=== PATIENT | female | born 1950 | race Caucasian/White ===

== ENCOUNTER 2022-04-02 03:52 | Emergency (ER) | payer OTHER, MEDICARE ==
[2022-04-02 04:05] VITALS: BP 114/76; PULSE 74; RESP 16; TEMP 98.1; BMI 14.6
== END 2022-04-02 07:16 | disposition home or self-care (01) ==
LOC: FER 03:52
DX: R68.89 Other general symptoms and signs (principal); W19.XXXA Unspecified fall, initial encounter
CPT/HCPCS: 99282-25

== ENCOUNTER 2022-04-11 02:34 | Emergency (ER) | payer OTHER, MEDICARE ==
[2022-04-11] MEDS ORDERED: FOLIC ACID INJECTION - 1 MG, THIAMINE HCL 100 MG, MULTIVIT INJECTION ADULT 10 ML in SOD... IVPB ONE (02:42)
[2022-04-11 03:26] VITALS: PULSE 66; TEMP 97.2; BMI 15.6
[2022-04-11] MEDS ORDERED: THIAMINE HCL 200 MG/2 ML VIAL ONE (03:30)
[2022-04-11] MEDS ORDERED: FOLIC ACID 5 MG/1 ML ONE (03:31)
[2022-04-11] MEDS ORDERED: MULTIVIT INJ. ADULT COMBO WITH VIT K 1 COMBO 10 ML VIAL IV ONE (03:33)
[2022-04-11 04:17] LABS: BASO % 0.5 % (0-2.0); EOS % 0.8 % (0-4.5); HEMATOCRIT 33.1 % (32.4-45.2); HEMOGLOBIN 11.4 GM/dL (10.7-15.3); LYMPH % 8.8 % (8-40); MCH 33.8 pg (25.7-33.7); MCHC 34.6 g/dl (32.0-36.0); MEAN CELL VOLUME 97.7 fl (80-96); MEAN PLT VOLUME 7.3 fl (7.5-11.1); MONO % 6.6 % (3.8-10.2); NEUT % 83.3 % (42.8-82.8); PH,URINE 6.5 (5.0-8.0); PLATELET COUNT 169 10^3/uL (134-434); RBC 3.38 M/mm3 (3.60-5.2); URINE APPEARANCE CLEAR; URINE BILIRUBIN NEGATIVE (NEGATIVE); URINE COLOR YELLOW; URINE GLUCOSE (UA) NEGATIVE (NEGATIVE); URINE KETONE NEGATIVE (NEGATIVE); URINE LEUK ESTERASE NEGATIVE (NEGATIVE); URINE NITRITE NEGATIVE (NEGATIVE); URINE PROTEIN NEGATIVE (NEGATIVE); URINE UROBILINOGEN 0.2 mg/dL (0.2-1.0); WHITE BLOOD COUNT 5.2 K/mm3 (4.0-10.0)
[2022-04-11 04:23] LABS: INR 1.11 (0.83-1.09); PROTHROMBIN TIME (PATIENT) 12.8 SEC (9.7-13.0)
[2022-04-11 04:38] LABS: ALBUMIN 3.4 g/dl (3.4-5.0); BLOOD UREA NITROGEN 22.8 mg/dL (7-18); CALCIUM 8.7 mg/dL (8.5-10.1)
[2022-04-11 04:42] LABS: CREATININE 0.5 mg/dL (0.55-1.3)
[2022-04-11 04:44] LABS: BILIRUBIN,TOTAL 0.6 mg/dL (0.2-1); TOT PROT 5.9 g/dl (6.4-8.2)
[2022-04-11 05:51] VITALS: BP 106/71; RESP 16
== END 2022-04-11 06:45 | disposition home or self-care (01) ==
LOC: FER 02:34
PROC: 3E033GC Introduction of Other Therapeutic Substance into Peripheral Vein, Percutaneous Approach (ICD-10-PCS; principal; 2022-04-11)
DX: R53.1 Weakness (principal); F03.90 Unspecified dementia, unspecified severity, without behavioral disturbance, psychotic disturbance, mood disturbance, and anxiety
CPT/HCPCS: 0241U-QW; 36415; 70450-TC; 71045-TC-FY; 80053; 81003; 84443; 85025; 85610; 87040; 87086; 99285-25

== ENCOUNTER 2022-04-15 00:22 | Emergency (ER) | payer OTHER, MEDICARE ==
[2022-04-15 00:47] VITALS: RESP 18; TEMP 98.8; BMI 24.1
[2022-04-15 01:16] VITALS: BP 92/54; PULSE 69
== END 2022-04-15 09:00 ==
LOC: FER 00:22
DX: Z04.3 Encounter for examination and observation following other accident (principal)
CPT/HCPCS: 70450-TC; 87040; 99284-25

== ENCOUNTER 2022-04-16 04:06 | Emergency (ER) | payer OTHER, MEDICARE ==
[2022-04-16 04:25] VITALS: BP 107/71; PULSE 78; RESP 16; BMI 14.8
[2022-04-16 08:46] VITALS: TEMP 98.8
== END 2022-04-16 10:30 | disposition home or self-care (01) ==
LOC: FER 04:06
DX: Z04.3 Encounter for examination and observation following other accident (principal)
CPT/HCPCS: 70450-TC; 99284-25

== ENCOUNTER 2022-04-17 20:18 | Emergency (ER) | payer OTHER, MEDICARE ==
[2022-04-17] MEDS ORDERED: SODIUM CHLORIDE 0.9% 500 ML INFUS.BAG IV ONE (20:50)
[2022-04-17] MEDS ORDERED: MAGNESIUM SULF 50% (8.12 MEQ/2 ML-1 GM VIAL) IVPB ONE (20:51)
[2022-04-17] MEDS ORDERED: THIAMINE HCL 200 MG/2 ML VIAL IM ONE (20:51)
[2022-04-17] MEDS ORDERED: FOLIC ACID 5 MG/1 ML SQ ONE (20:51)
[2022-04-17 20:56] VITALS: TEMP 99.1; BMI 16.4
[2022-04-17] MEDS ORDERED: THIAMINE HCL 200 MG/2 ML VIAL ONE (21:01)
[2022-04-17] MEDS ORDERED: MAGNESIUM SULFATE IN WATER 2 GM/50 ML IVPB IVPB ONE (21:01)
[2022-04-18 00:53] VITALS: BP 109/63; PULSE 75; RESP 16
== END 2022-04-18 00:55 | disposition home or self-care (01) ==
LOC: JER 20:18
DX: E86.0 Dehydration (principal)
CPT/HCPCS: 99283-25

== ENCOUNTER 2022-04-21 11:29 | Inpatient (IN) | payer OTHER, MEDICARE ==
[2022-04-21 12:56] LABS: HEMATOCRIT 35.4 % (32.4-45.2); HEMOGLOBIN 12.6 G/dL (10.7-15.3); MCH 34.7 pg (25.7-33.7); MCHC 35.6 g/dl (32.0-36.0); MEAN CELL VOLUME 97.4 fl (80-96); MEAN PLT VOLUME 7.4 fl (7.5-11.1); PLATELET COUNT 204.7 10^3/uL (134-434); RBC 3.63 10^6/uL (3.60-5.2); RDW 14.7 % (11.6-15.6); WHITE BLOOD COUNT 5.3 10^3/uL (4.0-10.8)
[2022-04-21 13:04] LABS: ALBUMIN 3.4 g/dl (3.4-5.0); CALCIUM 9.3 mg/dl (8.5-10); CREATININE 0.5 mg/dl (0.55-1.3); TOT PROT 5.6 g/dl (6.4-8.2)
[2022-04-21 13:07] LABS: PLATELET ESTIMATE ADEQUATE
[2022-04-21] MEDS ORDERED: LACTATED RINGERS SOLUTION 1,000 ML IV STA (13:10)
[2022-04-21] MEDS ORDERED: KCL 10 MEQ IVPB 10 MEQ/100 ML INFUS.BAG IVPB ONE ×2 (13:32→18:40)
[2022-04-21] MEDS: KCL 10 MEQ IVPB 10 MEQ/100 ML INFUS.BAG IVPB SCH ×2 (13:48→18:38)
[2022-04-21 20:40] VITALS: BMI 16.0
[2022-04-22] MEDS: POTASSIUM CHLORIDE TABS 20 MEQ TABLET.ER (FP) PO ONE ×2 (06:22→06:33)
[2022-04-22 08:27] LABS: ALBUMIN 3.3 g/dl (3.4-5.0); BILIRUBIN,TOTAL 0.9 mg/dl (0.2-1); CALCIUM 8.9 mg/dl (8.5-10); CREATININE 0.6 mg/dl (0.55-1.3); MAGNESIUM 1.8 mg/dL (1.8-2.4); PHOSPHOROUS 3.1 mg/dl (2.5-4.9); TOT PROT 5.3 g/dl (6.4-8.2)
[2022-04-22] MEDS: KCL 10 MEQ IVPB 10 MEQ/100 ML INFUS.BAG IVPB SCH ×7 (09:00→15:58)
[2022-04-22] MEDS: DIVALPROEX SODIUM 125 MG SPRINKLE CAPS PO SCH ×2 (09:10→21:50)
[2022-04-22] MEDS: LACTATED RINGERS SOLUTION 1,000 ML/1,000 ML INFUS.BAG IV SCH (09:28)
[2022-04-22] MEDS ORDERED: MULTIVIT CALC MINS PO SCH (10:00)
[2022-04-22] MEDS ORDERED: FOLIC PO SCH (10:00)
[2022-04-22] MEDS ORDERED: IRON PO SCH (10:00)
[2022-04-22] MEDS ORDERED: [UNRECOGNIZED DRUG - OTHER] PO SCH (10:00)
[2022-04-22 10:04] LABS: BASO % 0.1 % (0-2.0); EOS % 0.6 % (0-4.5); HEMATOCRIT 35.3 % (32.4-45.2); HEMOGLOBIN 12.3 GM/dL (10.7-15.3); LYMPH % 7.5 % (8-40); MCHC 34.8 g/dl (32.0-36.0); MEAN CELL VOLUME 97.7 fl (80-96); MEAN PLT VOLUME 8.1 fl (7.5-11.1); MONO % 3.2 % (3.8-10.2); NEUT % 88.6 % (42.8-82.8); PLATELET COUNT 200 10^3/uL (134-434); RBC 3.61 M/mm3 (3.60-5.2); RDW 15.2 % (11.6-15.6); WHITE BLOOD COUNT 5.4 K/mm3 (4.0-10.0)
[2022-04-22] MEDS: FLUoxetine HCL 10 MG CAPSULE PO SCH (12:28)
[2022-04-22] MEDS: MIDODRINE HCL 2.5 MG TABLET PO SCH ×2 (12:28→18:12)
[2022-04-22] MEDS: risperiDONE 0.5 MG TABLET PO SCH ×2 (12:29→14:35)
[2022-04-22] MEDS: MULTIVITAMINS THER W-MINERALS COMBO TABLET (FP) PO SCH (12:29)
[2022-04-22] MEDS: ZINC SULFATE 220 MG CAPSULE (FP) PO SCH (12:29)
[2022-04-22] MEDS: DOCUSATE NA 100 MG/10 ML UNIT-DOSE CUPS PO SCH ×2 (12:29→21:50)
[2022-04-22] MEDS: LEVOTHYROXINE NA 112 MCG TABLET (FP) PO SCH (12:29)
[2022-04-22] MEDS: ASCORBIC ACID 500 MG TABLET (FP) PO SCH (12:29)
[2022-04-22] MEDS: COLCHICINE 0.6 MG CAPSULE PO SCH ×2 (12:29→21:48)
[2022-04-22] MEDS: MEGESTROL ACETATE 400 MG/10 ML UNIT DOSE CUP PO SCH ×2 (12:29→21:50)
[2022-04-22] MEDS: SENNOSIDES 8.6MG TABLET (FP) PO SCH (12:29)
[2022-04-22] MEDS: CHOLECALCIFEROL (VIT D3) 1,000 UNIT (25 MCG) TABLET PO SCH (12:30)
[2022-04-22] MEDS: AMINO ACIDS 4.25%/D5W 1,000 ML IV SCH (19:44)
[2022-04-22] MEDS: THIAMINE HCL 200 MG/2 ML VIAL IVPB SCH (19:47)
[2022-04-22] MEDS: ATORVASTATIN CA 10 MG TABLET (FP) PO SCH (21:48)
[2022-04-22] MEDS ORDERED: risperiDONE 0.5 MG TABLET PO SCH (22:00)
[2022-04-23] MEDS: LEVOTHYROXINE NA 112 MCG TABLET (FP) PO SCH (06:19)
[2022-04-23] MEDS: LACTATED RINGERS SOLUTION 1,000 ML/1,000 ML INFUS.BAG IV SCH (07:30)
[2022-04-23 08:35] LABS: HEMOGLOBIN 12.8 G/dL (10.7-15.3); MCHC 35.4 g/dl (32.0-36.0); MEAN PLT VOLUME 7.9 fl (7.5-11.1); PLATELET COUNT 185.3 10^3/uL (134-434); RBC 3.64 10^6/uL (3.60-5.2); RDW 14.4 % (11.6-15.6); WHITE BLOOD COUNT 7.3 10^3/uL (4.0-10.8)
[2022-04-23] MEDS: risperiDONE 0.5 MG TABLET PO SCH ×2 (08:37→13:47)
[2022-04-23 08:40] LABS: CALCIUM 9.3 mg/dl (8.5-10); CREATININE 0.5 mg/dl (0.55-1.3); MAGNESIUM 1.7 mg/dL (1.8-2.4); PHOSPHOROUS 2.3 mg/dl (2.5-4.9)
[2022-04-23] MEDS: MEGESTROL ACETATE 400 MG/10 ML UNIT DOSE CUP PO SCH ×2 (09:23→21:35)
[2022-04-23] MEDS: MULTIVITAMINS THER W-MINERALS COMBO TABLET (FP) PO SCH (09:23)
[2022-04-23] MEDS: DOCUSATE NA 100 MG/10 ML UNIT-DOSE CUPS PO SCH ×2 (09:23→21:35)
[2022-04-23] MEDS: ASCORBIC ACID 500 MG TABLET (FP) PO SCH (09:24)
[2022-04-23] MEDS: ZINC SULFATE 220 MG CAPSULE (FP) PO SCH (09:24)
[2022-04-23] MEDS: DIVALPROEX SODIUM 125 MG SPRINKLE CAPS PO SCH ×2 (09:24→21:35)
[2022-04-23] MEDS: COLCHICINE 0.6 MG CAPSULE PO SCH ×2 (09:24→21:36)
[2022-04-23] MEDS: CHOLECALCIFEROL (VIT D3) 1,000 UNIT (25 MCG) TABLET PO SCH (09:24)
[2022-04-23] MEDS: MIDODRINE HCL 2.5 MG TABLET PO SCH ×2 (09:25→17:59)
[2022-04-23] MEDS: SENNOSIDES 8.6MG TABLET (FP) PO SCH (09:26)
[2022-04-23] MEDS: FLUoxetine HCL 10 MG CAPSULE PO SCH (09:34)
[2022-04-23] MEDS: THIAMINE HCL 200 MG/2 ML VIAL IVPB SCH (09:35)
[2022-04-23] MEDS ORDERED: MAGNESIUM SULF 50% (8.12 MEQ/2 ML-1 GM VIAL) IVPB ONE (11:51)
[2022-04-23] MEDS ORDERED: POTASSIUM PHOSPHATE 15 MM in DEXTROSE 5%-WATER - 250 ML IVPB ONE (11:51)
[2022-04-23] MEDS: MIRTAZAPINE 15 MG TABLET (FP) PO SCH (21:35)
[2022-04-23] MEDS: ATORVASTATIN CA 10 MG TABLET (FP) PO SCH (21:35)
[2022-04-23] MEDS: AMINO ACIDS 4.25%/D5W 1,000 ML IV SCH (21:36)
[2022-04-24] MEDS: LACTATED RINGERS SOLUTION 1,000 ML/1,000 ML INFUS.BAG IV SCH (06:31)
[2022-04-24] MEDS: LEVOTHYROXINE NA 112 MCG TABLET (FP) PO SCH (06:31)
[2022-04-24] MEDS ORDERED: LACTATED RINGERS SOLUTION 1,000 ML/1,000 ML INFUS.BAG IV SCH (07:14)
[2022-04-24] MEDS: CHOLECALCIFEROL (VIT D3) 1,000 UNIT (25 MCG) TABLET PO SCH (09:46)
[2022-04-24] MEDS: DIVALPROEX SODIUM 125 MG SPRINKLE CAPS PO SCH ×2 (09:47→21:15)
[2022-04-24] MEDS: risperiDONE 0.5 MG TABLET PO SCH ×2 (09:47→14:29)
[2022-04-24] MEDS: DOCUSATE NA 100 MG/10 ML UNIT-DOSE CUPS PO SCH ×2 (09:47→21:14)
[2022-04-24] MEDS: COLCHICINE 0.6 MG CAPSULE PO SCH ×2 (09:47→21:15)
[2022-04-24] MEDS: ZINC SULFATE 220 MG CAPSULE (FP) PO SCH (09:48)
[2022-04-24] MEDS: MEGESTROL ACETATE 400 MG/10 ML UNIT DOSE CUP PO SCH ×2 (09:48→21:15)
[2022-04-24] MEDS: ASCORBIC ACID 500 MG TABLET (FP) PO SCH (09:49)
[2022-04-24] MEDS: THIAMINE HCL 200 MG/2 ML VIAL IVPB SCH (09:49)
[2022-04-24] MEDS: SENNOSIDES 8.6MG TABLET (FP) PO SCH ×2 (09:49→21:15)
[2022-04-24] MEDS: MULTIVITAMINS THER W-MINERALS COMBO TABLET (FP) PO SCH (09:49)
[2022-04-24] MEDS ORDERED: SIMETHICONE 80 MG TAB.CHEW (FP) PO PRN (12:29)
[2022-04-24 12:53] LABS: HEMATOCRIT 34.7 % (32.4-45.2); HEMOGLOBIN 12.5 G/dL (10.7-15.3); MCH 34.9 pg (25.7-33.7); MCHC 36.1 g/dl (32.0-36.0); MEAN CELL VOLUME 96.7 fl (80-96); MEAN PLT VOLUME 7.5 fl (7.5-11.1); RBC 3.59 10^6/uL (3.60-5.2); RDW 14.2 % (11.6-15.6); WHITE BLOOD COUNT 6.5 10^3/uL (4.0-10.8)
[2022-04-24 13:06] LABS: CREATININE 0.5 mg/dl (0.55-1.3); PHOSPHOROUS 2.1 mg/dl (2.5-4.9)
[2022-04-24] MEDS ORDERED: POTASSIUM CHLORIDE ORAL LIQUID 20 MEQ/15 ML PO ONE (13:14)
[2022-04-24] MEDS ORDERED: MAGNESIUM SULF 50% (8.12 MEQ/2 ML-1 GM VIAL) IVPB ONE (13:16)
[2022-04-24 13:33] LABS: CALCIUM 8.6 mg/dl (8.5-10)
[2022-04-24] MEDS ORDERED: POTASSIUM PHOSPHATE 15 MM in SODIUM CHLORIDE 250 ML IVPB ONE (14:00)
[2022-04-24] MEDS: KCL 10 MEQ IVPB 10 MEQ/100 ML INFUS.BAG IVPB SCH ×4 (14:15→16:43)
[2022-04-24] MEDS: POLYETHYLENE GLYCOL (HEALTHYLAX) 3350 17 GM PACKET PO SCH (14:20)
[2022-04-24] MEDS: AMINO ACIDS 4.25%/D5W 1,000 ML IV SCH (20:12)
[2022-04-24] MEDS: MIRTAZAPINE 15 MG TABLET (FP) PO SCH (21:15)
[2022-04-24] MEDS: ATORVASTATIN CA 10 MG TABLET (FP) PO SCH (21:15)
[2022-04-24] MEDS ORDERED: MELATONIN 5 MG TABLETS PO PRN (22:00)
[2022-04-24] MEDS ORDERED: MIDODRINE HCL 5 MG TABLET PO PRN (23:00)
[2022-04-25] MEDS: LEVOTHYROXINE NA 112 MCG TABLET (FP) PO SCH (06:18)
[2022-04-25] MEDS ORDERED: MIDODRINE HCL 2.5 MG TABLET PO PRN (07:27)
[2022-04-25 08:05] LABS: HEMATOCRIT 34.7 % (32.4-45.2); HEMOGLOBIN 12.2 G/dL (10.7-15.3); MCH 34.5 pg (25.7-33.7); MCHC 35.3 g/dl (32.0-36.0); MEAN CELL VOLUME 97.8 fl (80-96); MEAN PLT VOLUME 7.9 fl (7.5-11.1); PLATELET COUNT 129.8 10^3/uL (134-434); RBC 3.55 10^6/uL (3.60-5.2); RDW 14.6 % (11.6-15.6); WHITE BLOOD COUNT 6.3 10^3/uL (4.0-10.8)
[2022-04-25 08:49] LABS: CREATININE 0.3 mg/dl (0.55-1.3); PHOSPHOROUS 2.4 mg/dl (2.5-4.9)
[2022-04-25] MEDS: DIVALPROEX SODIUM 125 MG SPRINKLE CAPS PO SCH ×2 (09:46→21:22)
[2022-04-25] MEDS: ZINC SULFATE 220 MG CAPSULE (FP) PO SCH (09:46)
[2022-04-25] MEDS: MULTIVITAMINS THER W-MINERALS COMBO TABLET (FP) PO SCH (09:46)
[2022-04-25] MEDS: CHOLECALCIFEROL (VIT D3) 1,000 UNIT (25 MCG) TABLET PO SCH (09:46)
[2022-04-25] MEDS: COLCHICINE 0.6 MG CAPSULE PO SCH ×2 (09:46→21:22)
[2022-04-25] MEDS: ASCORBIC ACID 500 MG TABLET (FP) PO SCH (09:46)
[2022-04-25] MEDS: risperiDONE 0.5 MG TABLET PO SCH ×2 (09:47→15:51)
[2022-04-25] MEDS: THIAMINE HCL 200 MG/2 ML VIAL IVPB SCH (09:47)
[2022-04-25] MEDS: POLYETHYLENE GLYCOL (HEALTHYLAX) 3350 17 GM PACKET PO SCH (09:47)
[2022-04-25] MEDS: DOCUSATE NA 100 MG/10 ML UNIT-DOSE CUPS PO SCH ×2 (09:47→21:23)
[2022-04-25] MEDS: MEGESTROL ACETATE 400 MG/10 ML UNIT DOSE CUP PO SCH ×2 (09:48→21:22)
[2022-04-25] MEDS: NAPH,MB-DB/K PH,MBDB POWDER PACKET PO SCH (15:51)
[2022-04-25] MEDS: ATORVASTATIN CA 10 MG TABLET (FP) PO SCH (21:22)
[2022-04-25] MEDS: SENNOSIDES 8.6MG TABLET (FP) PO SCH (21:22)
[2022-04-25] MEDS: MIRTAZAPINE 15 MG TABLET (FP) PO SCH (21:22)
[2022-04-26] MEDS: LEVOTHYROXINE NA 112 MCG TABLET (FP) PO SCH (06:29)
[2022-04-26] MEDS: risperiDONE 0.5 MG TABLET PO SCH ×2 (10:19→14:24)
[2022-04-26] MEDS: DIVALPROEX SODIUM 125 MG SPRINKLE CAPS PO SCH ×2 (10:20→21:56)
[2022-04-26] MEDS: DOCUSATE NA 100 MG/10 ML UNIT-DOSE CUPS PO SCH ×2 (10:20→21:56)
[2022-04-26] MEDS: NAPH,MB-DB/K PH,MBDB POWDER PACKET PO SCH (10:20)
[2022-04-26] MEDS: COLCHICINE 0.6 MG CAPSULE PO SCH ×2 (10:21→21:56)
[2022-04-26] MEDS: ZINC SULFATE 220 MG CAPSULE (FP) PO SCH (10:21)
[2022-04-26] MEDS: MULTIVITAMINS THER W-MINERALS COMBO TABLET (FP) PO SCH (10:21)
[2022-04-26] MEDS: MEGESTROL ACETATE 400 MG/10 ML UNIT DOSE CUP PO SCH ×2 (10:22→21:56)
[2022-04-26] MEDS: THIAMINE HCL 200 MG/2 ML VIAL IVPB SCH (10:22)
[2022-04-26] MEDS: ASCORBIC ACID 500 MG TABLET (FP) PO SCH (10:22)
[2022-04-26] MEDS: CHOLECALCIFEROL (VIT D3) 1,000 UNIT (25 MCG) TABLET PO SCH (10:22)
[2022-04-26] MEDS: POLYETHYLENE GLYCOL (HEALTHYLAX) 3350 17 GM PACKET PO SCH (10:22)
[2022-04-26] MEDS: ATORVASTATIN CA 10 MG TABLET (FP) PO SCH (21:56)
[2022-04-26] MEDS: SENNOSIDES 8.6MG TABLET (FP) PO SCH (21:57)
[2022-04-26] MEDS: MIRTAZAPINE 15 MG TABLET (FP) PO SCH (21:57)
[2022-04-27] MEDS: LEVOTHYROXINE NA 112 MCG TABLET (FP) PO SCH (07:20)
[2022-04-27] MEDS: AMINO ACIDS 4.25%/D5W 1,000 ML IV SCH (08:29)
[2022-04-27] MEDS: CHOLECALCIFEROL (VIT D3) 1,000 UNIT (25 MCG) TABLET PO SCH (10:18)
[2022-04-27] MEDS: ZINC SULFATE 220 MG CAPSULE (FP) PO SCH (10:19)
[2022-04-27] MEDS: MEGESTROL ACETATE 400 MG/10 ML UNIT DOSE CUP PO SCH ×2 (10:19→21:07)
[2022-04-27] MEDS: MULTIVITAMINS THER W-MINERALS COMBO TABLET (FP) PO SCH (10:19)
[2022-04-27] MEDS: risperiDONE 0.5 MG TABLET PO SCH ×2 (10:19→15:57)
[2022-04-27] MEDS: NAPH,MB-DB/K PH,MBDB POWDER PACKET PO SCH (10:19)
[2022-04-27] MEDS: DIVALPROEX SODIUM 125 MG SPRINKLE CAPS PO SCH ×2 (10:20→21:07)
[2022-04-27] MEDS ORDERED: POTASSIUM PHOSPHATE 15 MM in SODIUM CHLORIDE 250 ML IVPB ONE (12:30)
[2022-04-27] MEDS: DOCUSATE NA 100 MG/10 ML UNIT-DOSE CUPS PO SCH (12:35)
[2022-04-27] MEDS: POLYETHYLENE GLYCOL (HEALTHYLAX) 3350 17 GM PACKET PO SCH (12:36)
[2022-04-27] MEDS: THIAMINE HCL 200 MG/2 ML VIAL IVPB SCH (12:43)
[2022-04-27] MEDS: COLCHICINE 0.6 MG CAPSULE PO SCH ×2 (12:44→21:07)
[2022-04-27] MEDS: ASCORBIC ACID 500 MG TABLET (FP) PO SCH (12:45)
[2022-04-27] MEDS: POTASSIUM CHLORIDE 10 MEQ in AMINO ACIDS 4.25%/D5W 1,000 ML IV SCH (14:06)
[2022-04-27] MEDS: MIRTAZAPINE 15 MG TABLET (FP) PO SCH (21:07)
[2022-04-27] MEDS: ATORVASTATIN CA 10 MG TABLET (FP) PO SCH (21:07)
[2022-04-28] MEDS: SENNOSIDES 8.6MG TABLET (FP) PO SCH (05:51)
[2022-04-28] MEDS: DOCUSATE NA 100 MG/10 ML UNIT-DOSE CUPS PO SCH ×2 (05:51→09:03)
[2022-04-28] MEDS: LEVOTHYROXINE NA 112 MCG TABLET (FP) PO SCH (06:18)
[2022-04-28] MEDS: AMINO ACIDS 4.25%/D5W 1,000 ML IV SCH (06:36)
[2022-04-28] MEDS: THIAMINE HCL 200 MG/2 ML VIAL IVPB SCH (09:03)
[2022-04-28] MEDS: MEGESTROL ACETATE 400 MG/10 ML UNIT DOSE CUP PO SCH (09:03)
[2022-04-28] MEDS: CHOLECALCIFEROL (VIT D3) 1,000 UNIT (25 MCG) TABLET PO SCH (09:04)
[2022-04-28] MEDS: COLCHICINE 0.6 MG CAPSULE PO SCH (09:04)
[2022-04-28] MEDS: NAPH,MB-DB/K PH,MBDB POWDER PACKET PO SCH (09:04)
[2022-04-28] MEDS: POLYETHYLENE GLYCOL (HEALTHYLAX) 3350 17 GM PACKET PO SCH (09:04)
[2022-04-28] MEDS: MULTIVITAMINS THER W-MINERALS COMBO TABLET (FP) PO SCH (09:04)
[2022-04-28] MEDS: risperiDONE 0.5 MG TABLET PO SCH ×2 (09:04→13:18)
[2022-04-28] MEDS: DIVALPROEX SODIUM 125 MG SPRINKLE CAPS PO SCH (09:05)
[2022-04-28] MEDS: ASCORBIC ACID 500 MG TABLET (FP) PO SCH (09:05)
[2022-04-28] MEDS: ZINC SULFATE 220 MG CAPSULE (FP) PO SCH (09:10)
[2022-04-28] MEDS: POTASSIUM CHLORIDE 10 MEQ in AMINO ACIDS 4.25%/D5W 1,000 ML IV SCH (11:44)
[2022-04-28 14:21] VITALS: RESP 18
[2022-04-28 18:07] VITALS: BP 105/56; PULSE 98; TEMP 98.4
== END 2022-04-28 18:54 | DRG 884 ==
LOC: FER 11:29 → FM/S 16:02
PROVIDERS: ADMIT Internal Medicine
DX: F03.918 Unspecified dementia, unspecified severity, with other behavioral disturbance (principal); E87.0 Hyperosmolality and hypernatremia; R64 Cachexia; Z68.1 Body mass index [BMI] 19.9 or less, adult; E46 Unspecified protein-calorie malnutrition; F32.A Depression, unspecified; E78.5 Hyperlipidemia, unspecified; E87.6 Hypokalemia; E86.0 Dehydration; R62.7 Adult failure to thrive; M54.9 Dorsalgia, unspecified; R29.6 Repeated falls; E03.9 Hypothyroidism, unspecified; I95.9 Hypotension, unspecified; E86.9 Volume depletion, unspecified; F29 Unspecified psychosis not due to a substance or known physiological condition; E83.39 Other disorders of phosphorus metabolism; R33.8 Other retention of urine
CPT/HCPCS: 36415; 74018-TC-FY; 74177-TC; 80048; 80053; 81003; 81015; 82533; 83735; 84100; 84439; 84443; 85025; 85027; 87086; 87186; 93005; 97116-GP; 97162-GP; 99285-25; C9803-CS; U0003; U0005